=== PATIENT | female | born 1965 | race American Indian/Alaskan Native ===

== ENCOUNTER 2017-02-17 07:26 | Outpatient (CLI) | payer OTHER ==
--- NOTE | 2017-02-17 10:04 | Mammography Report ---
Bilateral mammogram: Compared to 05/26/15. CAD study utilized. Findings: Predominance adipose tissue bilaterally. New circumscribed density upper posterior right breast 12:00 position. No microcalcification. Benign axillary nodes. Impression: New density 12 o'clock position right breast. Recommend spot mag and sonographic examination. BI-RADS CATEGORY: 0 = Needs additional imaging evaluation ACR BI-RADS MAMMOGRAPHIC CODES: 0 = Needs additional imaging evaluation; 1 = Negative; 2 = Benign; 3 = Probably benign; 4 = Suspicious; 5 = Malignant; 6 = Known biopsy-proven malignancy COMMENT: 1. Dense breast tissue, i.e., adenosis, fibrocystic changes, etc., may obscure an underlying neoplasm. 2. Approximately 10% of cancers are not detected with mammography. 3. A negative mammography report should not delay biopsy if a clinically suspicious mass is present. COMMENT: Patient follow-up letters are generated in [employer].
== END 2017-02-17 07:27 | disposition home or self-care (01) ==
LOC: MAMMO 07:26
PROVIDERS: ATTEND Obstetrics & Gynecology
DX: Z12.31 Encounter for screening mammogram for malignant neoplasm of breast (principal)
CPT/HCPCS: 77067; G0202

== ENCOUNTER 2017-03-15 09:05 | Outpatient (CLI) | payer OTHER ==
--- NOTE | 2017-03-15 10:47 | Mammography Report ---
RIGHT DIGITAL DIAGNOSTIC MAMMOGRAM and RIGHT BREAST ULTRASOUND: 03/15/17 09:05:00 CLINICAL: Recalled for asymmetry. COMPARISON:02/17/17 screening FINDINGS: Lateralmedial and spot compression and CC views were performed. Partial effacement of asymmetry on the CC view. The lateral view is negative. Ultrasound of the upper right breast was performed and demonstrated no sonographic finding to correlate with the mammographic asymmetry. However, an oval slightly irregular hyperechoic mass with shadowing is identified at 1 o'clock 7 cm from the nipple. It measures 1.0 x 0.6 cm and is superficial to the skin. A BB was placed on this lesion and the CC view of the mammogram was repeated. A confirms that the hyperechoic lesion at 1 o'clock does not correlate with the mammographic asymmetry. IMPRESSION: 1. A 1 cm mass at 1 o'clock 7 cm from the nipple. Recommend ultrasound guided needle core biopsy. 2. A probably benign mammographic asymmetry at approximately 12 o'clock with no ultrasound correlate. BI-RADS CATEGORY: 4--Suspicious RECOMMENDATION: Ultrasound guided needle core biopsy of the right breast. ACR BI-RADS MAMMOGRAPHIC CODES: 0 = Needs additional imaging evaluation; 1 = Negative; 2 = Benign; 3 = Probably benign; 4 = Suspicious; 5 = Malignant; 6 = Known biopsy-proven malignancy COMMENT: 1. Dense breast tissue, i.e., adenosis, fibrocystic changes, etc., may obscure an underlying neoplasm. 2. Approximately 10% of cancers are not detected with mammography. 3. A negative mammography report should not delay biopsy if a clinically suspicious mass is present. COMMENT: Patient follow-up letters are generated via our [employer] application.
--- NOTE | 2017-03-15 10:50 | Ultrasound Report ---
RIGHT DIGITAL DIAGNOSTIC MAMMOGRAM and RIGHT BREAST ULTRASOUND: 03/15/17 09:05:00 CLINICAL: Recalled for asymmetry. COMPARISON:02/17/17 screening FINDINGS: Lateralmedial and spot compression and CC views were performed. Partial effacement of asymmetry on the CC view. The lateral view is negative. Ultrasound of the upper right breast was performed and demonstrated no sonographic finding to correlate with the mammographic asymmetry. However, an oval slightly irregular hyperechoic mass with shadowing is identified at 1 o'clock 7 cm from the nipple. It measures 1.0 x 0.6 cm and is superficial to the skin. A BB was placed on this lesion and the CC view of the mammogram was repeated. A confirms that the hyperechoic lesion at 1 o'clock does not correlate with the mammographic asymmetry. IMPRESSION: 1. A 1 cm mass at 1 o'clock 7 cm from the nipple. Recommend ultrasound guided needle core biopsy. 2. A probably benign mammographic asymmetry at approximately 12 o'clock with no ultrasound correlate. BI-RADS CATEGORY: 4--Suspicious RECOMMENDATION: Ultrasound guided needle core biopsy of the right breast.
== END 2017-03-15 09:06 | disposition home or self-care (01) ==
LOC: MAMMO 09:05
PROVIDERS: ATTEND Obstetrics & Gynecology
DX: N63.10 Unspecified lump in the right breast, unspecified quadrant (principal); N64.59 Other signs and symptoms in breast; N64.89 Other specified disorders of breast
CPT/HCPCS: 76642; G0206

== ENCOUNTER 2017-03-31 09:11 | Outpatient (CLI) | payer OTHER ==
--- NOTE | 2017-03-31 10:52 | Mammography Report ---
RIGHT DIGITAL DIAGNOSTIC MAMMOGRAM: 03/31/17 09:11:00 CLINICAL: For clip placement immediately status post ultrasound biopsy. COMPARISON:03/15/17 FINDINGS: A biopsy clip is now identified in the upper inner quadrant and correlates with the lesion that was marked with a BB on the last mammogram. IMPRESSION: Concordant clip placement status post ultrasound biopsy. BI-RADS CATEGORY: 4--Suspicious Pathology pending.
--- NOTE | 2017-03-31 11:55 | Ultrasound Report ---
ULTRASOUND GUIDED NEEDLE CORE BIOPSY RIGHT BREAST WITH CLIP PLACEMENT: 03/31/17 CLINICAL: Right breast mass at 1 o'clock. COMPARISON :03/15/17 FINDINGS: The procedure was explained to the patient and informed consent was obtained. Ultrasound demonstrated the previously described oval hyperechoic mass at 1 o'clock 7 cm from the nipple. I marked the breast with a felt tip marker and a time out was called. The skin was prepped with Betadine and anesthetized with 1% lidocaine. Needle core biopsy was performed through a tiny dermatotomy using ultrasound guidance, 2% lidocaine with epinephrine for deep anesthesia and a 14-gauge Achieve biopsy device. 3 cores were obtained and placed in formalin. A clip was deployed within the mass. The patient tolerated the procedure well and there were no apparent complications. Hemostasis was achieved with minimal pressure and a sterile dressing was applied. A two view mammogram demonstrated concordant placement of the clip. She left the department in good condition and was given instructions for wound care and followup. IMPRESSION: Uncomplicated ultrasound guided needle core biopsy with clip placement right breast.
== END 2017-03-31 09:12 | disposition home or self-care (01) ==
LOC: SPVWC 09:11
PROVIDERS: ATTEND Obstetrics & Gynecology
DX: N63.10 Unspecified lump in the right breast, unspecified quadrant (principal); R92.8 Other abnormal and inconclusive findings on diagnostic imaging of breast
CPT/HCPCS: 19083; 88305; A4648; G0206

== ENCOUNTER 2020-03-06 08:23 | Outpatient (CLI) | payer OTHER ==
--- NOTE | 2020-03-06 10:02 | Mammography Report ---
DIGITAL SCREENING MAMMOGRAM WITH CAD, 03/06/2020 CLINICAL INFORMATION / INDICATION: Routine screening mammography. SCREENING MAMMOGRAM TECHNIQUE: Digital bilateral 2D mammography was obtained in the craniocaudal and mediolateral obliqu e projections. This examination was interpreted with the benefit of Computer-Aided Detection analysis . COMPARISON: 02/17/2017 FINDINGS: Breast Density: There are scattered areas of fibroglandular density. No dominant mass, suspicious calcifications, or architectural distortion in either breast. There is a biopsy marking clip on the right. IMPRESSION: No mammographic evidence of malignancy. Follow up recommendation: Routine yearly BI-RADS Category 2: Benign. A "normal" or negative report should not discourage follow up or biopsy of a clinically significant f inding. A written summary of these findings will be mailed to the patient. The patient will be entered into a mammography reporting system which will generate a reminder letter for the patient's next appointmen t at the appropriate interval. The [employer] recommends yearly mammograms starting at age 40 and continuing as l jennie as a woman is in good health. Breast MRI is recommended for women with an approximate 20-25% or greater lifetime risk of breast cancer, including women with a strong family history of breast or ova anatoliy cancer or who have been treated for Hodgkin's disease. Signer Name: Daniel Hoyos MD Signed: 03/06/2020 9:58 AM Workstation Name: [id number]
== END 2020-03-06 08:24 | disposition home or self-care (01) ==
LOC: MAMMO 08:23
PROVIDERS: ATTEND Obstetrics & Gynecology
DX: Z12.31 Encounter for screening mammogram for malignant neoplasm of breast (principal)
CPT/HCPCS: 77067

== ENCOUNTER 2021-03-11 08:18 | Outpatient (CLI) | payer OTHER ==
--- NOTE | 2021-03-11 18:10 | Mammography Report ---
DIGITAL SCREENING MAMMOGRAM WITH TOMOSYNTHESIS WITH CAD, 03/11/2021 CLINICAL INFORMATION / INDICATION: Routine Screening Mammography. TECHNIQUE: Digital bilateral 2D and 3D mammography with tomosynthesis was obtained in the craniocaud al and mediolateral oblique projections. Computer-Aided Detection (CAD) analysis was used for interp retation of this study. COMPARISON: 03/06/2020, 03/31/2017, 03/15/2017, 02/17/2017 FINDINGS: Breast Density: There are scattered areas of fibroglandular density. No dominant mass, suspicious calcifications, or architectural distortion in either breast. An upper inner right breast biopsy clip is unchanged. No other significant interval changes. IMPRESSION: No mammographic evidence of malignancy. Follow up recommendation: Routine yearly BI-RADS Category 2: Benign. A "normal" or negative report should not discourage follow up or biopsy of a clinically significant f inding. A written summary of these findings will be mailed to the patient. The patient will be entered into a mammography reporting system which will generate a reminder letter for the patient's next appointmen t at the appropriate interval. The [employer] recommends yearly mammograms starting at age 40 and continuing as l jennie as a woman is in good health. Breast MRI is recommended for women with an approximate 20-25% or greater lifetime risk of breast cancer, including women with a strong family history of breast or ova anatoliy cancer or who have been treated for Hodgkin's disease. Signer Name: Laureano Humphreys MD Signed: 03/11/2021 6:06 PM Workstation Name: [id number]
== END 2021-03-11 08:19 | disposition home or self-care (01) ==
LOC: SPVWC 08:18
DX: Z12.31 Encounter for screening mammogram for malignant neoplasm of breast (principal)
CPT/HCPCS: 77063; 77067